=== PATIENT | female | born 2000 | race Asian ===

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

== ENCOUNTER 2022-01-17 18:41 | Emergency (ER) | payer BC ==
[~2022-01-17] VITALS: Ht 157.5 cm; Wt 63.6 kg
[~2022-01-17 18:41] MED LIST: VITAMIN D31000 IU PO; ZOFRAN 4MG T4 MG/TAB PO
[2022-01-17 18:45] VITALS: BP 120/81; TEMP 97.5
[2022-01-17 20:16] VITALS: PULSE 76
== END 2022-01-17 20:17 | disposition home or self-care (01) ==
LOC: COL.ER 18:41
DX: R42 Dizziness and giddiness (principal); R51.9 Headache, unspecified; R11.0 Nausea; H53.8 Other visual disturbances; G40.909 Epilepsy, unspecified, not intractable, without status epilepticus; Z28.310 Unvaccinated for COVID-19; Z79.899 Other long term (current) drug therapy

== ENCOUNTER 2022-01-18 10:55 | Emergency (ER) | payer BC ==
[~2022-01-18] VITALS: Ht 157.5 cm; Wt 63.6 kg
[2022-01-18 12:44] LABS: BASO % 0.3 % (0.0-2.0); EOS % 0.2 % (0.0-4.0); GRAN # 8.4 K/mm3 (1.4-6.5); GRAN % 79.2 % (42.2-75.2); HEMOGLOBIN 10.7 g/dl (12.0-15.0); LYMPH # 1.4 K/mm3 (1.2-3.4); LYMPH % 12.8 % (20.0-51.0); MEAN CELL VOLUME 81 fl (80.0-95.0); MEAN CORPUSCULAR HEMOGLOBIN 26 pg (26-32); MEAN CORPUSCULAR HGB CONC 32 g/dl (33.0-37.0); MEAN PLATELET VOLUME 9.2 fl (7.4-10.4); MONO # 0.7 K/mm3 (0.1-0.6); MONO % 6.7 % (1.7-9.3); PLATELET COUNT 252 K/mm3 (130-400); REDCELL DISTRIBUTION WIDTH-CV 16.1 % (11.5-14.5)
[2022-01-18 12:45] LABS: HEMATOCRIT 33.9 % (35.0-45.0)
[2022-01-18 13:05] LABS: ALBUMIN 3.8 gm/dL (3.5-5.0); BILIRUBIN,TOTAL 0.4 mg/dL (0.2-1.2); CALCIUM 8.3 mg/dL (8.4-10.2); CREATININE, serum 0.66 mg/dL (0.57-1.11); POTASSIUM 3.5 mmol/L (3.5-4.5); TOTAL PROTEIN 6.7 gm/dL (6.2-8.1)
[2022-01-18 13:24] LABS: PROLACTIN 34.4 ng/mL (5.18-26.53)
[2022-01-18 14:02] VITALS: BP 102/51; PULSE 89
== END 2022-01-18 14:02 | disposition home or self-care (01) ==
LOC: COL.ER 10:55
PROVIDERS: Family Medicine
DX: G40.909 Epilepsy, unspecified, not intractable, without status epilepticus (principal); Z85.841 Personal history of malignant neoplasm of brain
CPT/HCPCS: J1200; J1790; J1953; J2405; J7030